=== PATIENT | male | born 1960 | race Caucasian/White ===

== ENCOUNTER → 2019-09-25 12:36 | Outpatient (CLI) | payer OTHER, SELFPAY ==
--- NOTE | 2019-09-25 | DI.CT.S_ITS ---
PROCEDURE: CT ABDOMEN PELVIS WO/W CON INDICATIONS: Other microscopic hematuria TECHNIQUE: Optional 5 mm thick noncontrast images acquired from the diaphragm to the symphysis pubis. After the administration of intravenous contrast, 5 mm thick images acquired from the diaphragm to the symphysis pubis after a 10-minute delay. 2 mm thick coronal and sagittal reformats were then performed of the kidneys and ureters. For radiation dose reduction, the following was used: automated exposure control, adjustment of mA and/or kV according to patient size. COMPARISON: None. FINDINGS: Image quality: Excellent. Lung bases: Lung bases are clear. Heart size is normal. Urinary system: Both kidneys are normal in size, without hydronephrosis or nephrolithiasis on pre-contrast images. No perinephric fat stranding. There is normal bilateral renal enhancement. Renal calyces appear normal in morphology when filled with contrast. Opacified portions of both ureters demonstrate normal caliber. Bladder wall thickness is normal. No calcified bladder stones. Other solid organs: There is a small low-density nodule in the right hepatic lobe, most likely a cyst. Liver is normal in size and enhancement. Gallbladder may contain small gallstones. Biliary system is non dilated. Pancreas enhances normally. There is a 9 mm low density nodule in the superior aspect of the spleen. There is a 1.3 cm right adrenal nodule with CT density less than 10 HU, compatible with a adenoma. Left adrenal thickening. Peritoneum and bowel: Bowel loops demonstrate normal wall thickness and caliber. Scattered colonic diverticula. No free fluid or air. Nodes and vessels: No retroperitoneal or mesenteric adenopathy by size criteria. Aorta and inferior vena cava are normal in size. Abdominal wall: No ventral hernias. Pelvis: There is perirectal lipomatosis. No pathologic free pelvic fluid. No inguinal hernias or adenopathy. Bones: No suspicious bony lesions. No vertebral body compression fractures. Scoliosis and degenerative changes in lumbar spine. IMPRESSION: 1. No renal masses. No renal stone hydronephrosis. 2. Thickening of the urinary bladder. Differential diagnosis include chronic bladder obstruction versus cystitis. 3. Enlarged prostate. 4. Suspect small gallstones. 5. Right adrenal nodule. 6. Diverticulosis without diverticulitis. 7. Perirectal lipomatosis. Dictated by: Carroll Alamo M.D. on 09/25/2019 at 13:23 Approved by: Carroll Alamo M.D. on 09/25/2019 at 17:14
== END ==
PROVIDERS: PCP Nurse Practitioner; Referring Provider Physician Assistant; Visit Provider Physician Assistant
DX: R31.29 Other microscopic hematuria (principal); N40.0 Benign prostatic hyperplasia without lower urinary tract symptoms; E27.9 Disorder of adrenal gland, unspecified; K57.90 Diverticulosis of intestine, part unspecified, without perforation or abscess without bleeding; E88.2 Lipomatosis, not elsewhere classified
CPT/HCPCS: 74178; Q9967